=== PATIENT | female | born 1985 | race Native Hawaiian/Other Pacific Islander ===

== ENCOUNTER 2017-02-02 02:28 | Inpatient (IN) | payer OTHER ==
[2017-02-02 03:04] VITALS: BMI 22.3
[2017-02-02] MEDS ORDERED: Lactated Ringer's 1,000 ML IV SCH (03:30)
--- NOTE | 2017-02-02 03:33 | OBADHP ---
Datetime: 02/02/2017 03:28 Admit Comment, IP Provider: 31 yo at 39+5 wks in active labor FHT reactive, GBS negative Dr. Rodriguez notified H_P dictated, "[id number]" Extremities - PN: Normal Abdomen - PN: Normal Neurologic - PN: Normal FHR - Baseline A Provider: 130's Membranes, Provider: Bulging Contraction Comments Provider: Q2-5 Vital Signs Provider: Reviewed; Within Normal Limits IP Chief Complaint: Uterine contractions NICHD Variability Prov Fetus A: Moderate 6-25bpm NICHD Accel Fetus A IP Provider: 15X15 FHR Category Provider Fetus A: Category I NICHD Decel Fetus A IP Provider: None Dilatation, Provider: 6-7 Effacement, Provider: 100 Station, Provider: -1 Genitourinary Exam: Normal EGA AdmitDate IP: 39.5 IP Adm Impression: Term, intrauterine IP Admit Plan: Initiate labor protocol
[2017-02-02 04:49] LABS: BASO % 0.2 % (0.0-2.0); EOS % 0.1 % (0.0-4.0); HEMATOCRIT 39.1 % (34.0-47.0); LYMPH # 1.5 K/uL (1.0-4.3); LYMPH % 13.6 % (20.0-40.0); MEAN CELL VOLUME 98.1 fl (81.0-99.0); MEAN CORPUSCULAR HEMOGLOBIN 33.2 pg (27.0-31.0); MEAN CORPUSCULAR HGB CONC 33.8 g/dL (33.0-37.0); MEAN PLATELET VOLUME 9.6 fl (7.2-11.7); MONO # 0.5 K/uL (0.0-0.8); MONO % 4.8 % (0.0-10.0); NEUT # 8.8 K/uL (1.8-7.0); NEUT % 81.3 % (50.0-75.0); NRBC % 0.2 % (0.0-0.0); RED CELL DISTRIBUTION WIDTH 13.2 % (11.5-14.5); WHITE BLOOD COUNT 10.8 K/uL (4.8-10.8)
[2017-02-02] MEDS ORDERED: Lidocaine 1% Inj (20ml) ONE (05:04)
[2017-02-02] MEDS ORDERED: Oxytocin 30 UNITS in Sodium Chloride 0.9% 500 ML IV ONE (08:45)
--- NOTE | 2017-02-02 09:32 | OBDS ---
DELIVERY PERSONNEL Nurse Game Agent Certified: drake Delivery Doctor: Alice Rodriguez MD Scrub Nurse: LEATHA wharton Print Finisher: LEATHA Carlton Anesthesiologist: drake Supervisor Sewer Maintenance: drake Resident: drake MATERNAL INFORMATION Delivery Anesthesia: Local Medications in Delivery: pitocin Estimated Blood Loss (ml): 250cc Placenta Cultured: No Maternal Complications: None RN Comments: 5 to alive baby girl ; 8/9 for tone and color episiotomy repaired;uneventful delivery;see MD' s notes Provider Comments: Delivered a living baby girl appears term cried spontaneously cord around left le g x1, 8/9, AF clear Placenta complete and intact Episiotomy repaired as above, no complications Uterus contracted well. Rectal done no defects. LABOR SUMMARY EDC: 02/04/2017 00:00 No. Babies in Womb: 1 Attempted: No Labor Anesthesia: local LABOR INFORMATION Reason for Induction: Not Applicable Onset of Labor: 02/01/2017 22:00 Complete Dilatation: 02/02/2017 08:20 Other Ripening Agents: na Oxytocin: na Group B Beta Strep: Negative Antibiotics # of Doses: 0 Antibiotics Time of Last Dose: 0 Steroids Given: None Reason Steroids Not Administered: Not Applicable MEMBRANES Membranes Rupture Method: Spontaneous Rupture of Membranes: 02/02/2017 08:25 Length of Rupture (hrs): 0.38 Amniotic Fluid Color: Clear Amniotic Fluid Amount: Small Amniotic Fluid Odor: Normal STAGES OF LABOR Stage 1 hrs: 10 Stage 1 min: 20 Stage 2 hrs: 0 Stage 2 min: 28 Stage 3 hrs: 0 Stage 3 min: 4 Total Time in Labor hrs: 10 Total Time in Labor min: 52 VAGINAL DELIVERY Episiotomy: Median Laceration Extension: First Degree Laceration Type: Perineal Other Laceration: na Laceration Repair: Yes Laceration Repair Note: medial episiotomy done and repaired with 2-0 chromic suture continously and interrupted No complications A small introital superficial lac noted repaired with simple 2-0 chronic suture. Initial Vag Sponge Count: 6 Final Vag Sponge Count: 6 Initial Vag Sharps Count: 2 Final Vag Sharps Count: 2 Sponge Count Correct: Yes Sharps Count Correct: Yes Count Comment: correct count and confirmed by tech CSECTION DELIVERY Primary Indication: N/A Secondary Indication: N/A CSection Incision: N/A BABY A INFORMATION Infant Delivery Date/Time: 02/02/2017 08:48 Method of Delivery: Vaginal Born in Route : No : N/A Forceps: N/A Vacuum Extraction: N/A Shoulder Dystocia : No SHOULDER DYSTOCIA BABY A Delivery Date/Time: 02/02/2017 08:48 PRESENTATION/POSITION BABY A Presentation: Cephalic Cephalic Presentation: Vertex Vertex Position: Left Occipital Anterior Breech Presentation: N/A PLACENTA INFORMATION BABY A Placenta Delivery Time : 02/02/2017 08:52 Placenta Method of Delivery: Spontaneous Placenta Status: Delivered SCORES BABY A Heart Rate 1 min: >100 bpm Resp Effort 1 min: Good Cry Reflex Irritability 1 min: Cough or Sneeze or Pulls Away Muscle Tone 1 min: Active Motion Color 1 min: Blue/Pale SCORE 1 MIN: 8 Heart Rate 5 min: >100 bpm Resp Effort 5 min: Good Cry Reflex Irritability 5 min: Cough or Sneeze or Pulls Away Muscle Tone 5 min: Active Motion Color 5 min: Body [place], Extremities Blue SCORE 5 MIN: 9 INFORMATION BABY A Gestational Age at Delivery: 39.5 Gestational Status: Term Infant Outcome : Liveborn Condition : Stable Infant Sex: Female IDENTIFICATION/MEDS BABY A ID Band Number: [id number] ID Band Location: Left Leg Sensor Location : Left Leg WEIGHT/LENGTH BABY A Birthweight (gms): 3190 Weight (lb): 7 Infant Weight (oz): 0 CORD INFORMATION BABY A No. Cord Vessels: 3 Nuchal Cord : N/A Nuchal Cord Other: cord around left leg True Knot: na Cord pH Baby Arterial: na Infant Cord pH Baby Venous: na Cord Blood Taken: Yes Banking/Donate Info: na Suction: Mouth; Nose; Pharynx
[2017-02-02] MEDS ORDERED: Oxycodone/Acetaminophen 5/325 mg Tab PO PRN ×2 (09:35→13:25)
[2017-02-02] MEDS ORDERED: Benzocaine/Menthol SPRAY TOP PRN ×2 (09:35→13:25)
[2017-02-02] MEDS ORDERED: Ammonia 2% Inhalant ONE ×2 (11:23→13:02)
--- NOTE | 2017-02-02 12:05 | HP ---
HISTORY OF PRESENT ILLNESS: This is a 31-year-old G2, P 0-0-1-0 at 39 weeks and 5 days with an EDC of 02/04/2017 by LMP consistent with a 13+ week ultrasound, who presents with painful contractions that started about 10 p.m. Reports bloody show that started at 2 a.m. Denies leaking of fluid and reports positive movements. The patient received her care with [facility] with Dr. Rodriguez. PAST MEDICAL HISTORY: Healthy. PAST SURGICAL HISTORY: None. MEDICATIONS: vitamins. ALLERGIES: NO KNOWN DRUG ALLERGIES. SOCIAL HISTORY: The patient denies tobacco, alcohol, no illicit drug use. FAMILY HISTORY: Noncontributory. INFORMATION ASSURANCE OFFICER HISTORY: Regular periods. The patient denies any history of any abnormal past STDs. OB HISTORY: In 2015, she underwent a medical termination of . LABS: Blood type is O positive. Antibody screen negative. Rubella immune. Hemoglobin electrophoresis was within normal limits. RPR was nonreactive. Hepatitis B surface antigen is negative. Ernst was a low-risk female. Maternal alpha-fetoprotein was negative. One-hour glucola was 133 that was done on 11/20/2016. On 01/06/2017, group B strep was negative. PHYSICAL EXAMINATION: VITAL SIGNS: Afebrile. Vital signs are stable. GENERAL: The patient appears uncomfortable with the contractions. ABDOMEN: Soft, nontender, gravid. EXTREMITIES: Nontender. VAGINAL: 6 to 7 cm dilated with a bulging bag at 3:10 a.m. There was a blood noted at the introitus. EXTERNAL MONITORING : the baseline is in the 130s, moderate variability and positive accelerations. TOCODYNAMOMETER: Contractions every one to three minutes. ASSESSMENT AND PLAN: This is a 31-year-old G2, P 0-0-1-0 at 39 weeks and 5 days in active labor. heart tracing is reactive. GBS is negative. Dr. Rodriguez has been notified. Deion Short MD MTDD
[2017-02-03 06:32] LABS: HEMATOCRIT 30.9 % (34.0-47.0); MEAN CELL VOLUME 97.8 fl (81.0-99.0); MEAN CORPUSCULAR HEMOGLOBIN 33.8 pg (27.0-31.0); MEAN CORPUSCULAR HGB CONC 34.5 g/dL (33.0-37.0); RED CELL DISTRIBUTION WIDTH 12.9 % (11.5-14.5)
--- NOTE | 2017-02-03 07:30 | OBPPN ---
Datetime: 02/03/2017 07:24 PP Pain Prov: Within normal limits PP Pain Prov comment: No SOB, chest pains or leg pains PP Nausea Prov: Denies PP Flatus Prov: Yes PP BM Prov: No PP Nausea Prov comment: voiding well PP Breasts Prov: Normal PP Lungs Prov: Normal PP Abdomen/Uterus Prov: Abnormal PP Lochia Prov: Normal PP Vulva/Perineum Prov: Abnormal PP CVA Tenderness Prov: Normal PP Extremities Prov: Normal PP C/S Incision Prov: Not Applicable PP Progress Prov: Normal PP Comments Phys Exam Prov: breast not engorged NT; Abd soft ND, fundus firm below the umb, NT; Per ineum repaired Ext no calf tenderness no edema. PP Impression Prov: Normal progression PP Plan Prov: Continue present management PP Progress Note Prov: Mannual platellet count continue PP care and OOB and ambulation IP PP Procedures: None
[2017-02-03] MEDS: Prenatal Multivit/Folic Acid/Iron Tab PO SCH (08:15)
[2017-02-03] MEDS ORDERED: Prenatal Multivit/Folic Acid/Iron Tab PO SCH (09:00)
--- NOTE | 2017-02-04 07:48 | OBPPN ---
Datetime: 02/04/2017 07:44 PP Pain Prov: Within normal limits PP Pain Prov comment: no SOB, chest pains or leg pains PP Nausea Prov: Denies PP Flatus Prov: Yes PP Nausea Prov comment: voiding well PP Breasts Prov: Normal PP Lungs Prov: Normal PP Abdomen/Uterus Prov: Abnormal PP Lochia Prov: Normal PP Vulva/Perineum Prov: Abnormal PP CVA Tenderness Prov: Normal PP Extremities Prov: Normal PP C/S Incision Prov: Not Applicable PP Progress Prov: Normal PP Comments Phys Exam Prov: breast not engorged NT, abd soft ND, fundus firm below umb NT, Perineum repaired Lochia not excesive, Ext no calf tenderness PP Impression Prov: Normal progression PP Plan Prov: Discharge PP Progress Note Prov: d/C home with instructions IP PP Procedures: None Vital Signs Provider PP: Reviewed
--- NOTE | 2017-02-04 07:51 | OBDCSUM ---
Datetime: 02/04/2017 07:47 Discharged to, Provider: Home Follow up at, Provider: Dr Rodriguez Disch Instr Activity: Bedrest; May be up to bathroom; May be up for meals; May Shower Disch Instr Diet: Regular Discharge Instructions, Provider: Routine instructions given Discharge Diagnosis, Provider: Term Delivered Discharge Time: 02/04/2017 07:47 Follow up in weeks, Provider: 4-6 wks Disch Referrals: None Contraception discussed, Prov: Yes Disch Activity Restrictions: No exercising; No lifting; No driving; Minimize walking; Minimize stair -climbing; No sexual activity; Nothing in vagina - [place], tampons, douche Discharge Comment, Provider: Continue PP care and PNC vit and iron Contraception after Delivery: Undecided
[2017-02-04] MEDS: Prenatal Multivit/Folic Acid/Iron Tab PO SCH (09:18)
[2017-02-04 18:12] VITALS: BP 111/76; PULSE 80; RESP 20; TEMP 98.7; O2SAT 99
== END 2017-02-04 13:03 | disposition home or self-care (01) | DRG 775 ==
LOC: H.EROB2 02:28 → H.L&D 03:22 → H.OB/GYN 15:13
PROVIDERS: ADMIT Specialist; ATTEND Specialist
PROC: 0HQ9XZZ Repair Perineum Skin, External Approach (ICD-10-PCS; principal; 2017-02-02)
PROC: 10E0XZZ Delivery of Products of Conception, External Approach (ICD-10-PCS; 2017-02-02)
PROC: 4A1HXCZ Monitoring of Products of Conception, Cardiac Rate, External Approach (ICD-10-PCS; 2017-02-02)
DX: O69.81X0 Labor and delivery complicated by cord around neck, without compression, not applicable or unspecified (principal); O70.0 First degree perineal laceration during delivery; Z37.0 Single live birth; Z3A.39 39 weeks gestation of pregnancy